=== PATIENT | male | born 1985 | race Caucasian/White ===

== ENCOUNTER 2018-03-15 12:48 | Emergency (ER) | payer OTHER ==
[2018-03-15 13:49] LABS: HBSAB Concentration 7.49 mIU/mL; HIV (1/2) Antibody/Antigen Non-Reactive (NonReactive); HIV 1/2 INDEX 0.12 S/CO (<1.00); Hep B Surf AB Non-Reactive (NonReactive); Hep C IgG Ab Non-Reactive (NonReactive); Hep C Index 0.06 S/CO (0-0.79)
== END 2018-03-15 13:07 | disposition home or self-care (01) ==
LOC: ERS 12:48
DX: Z77.21 Contact with and (suspected) exposure to potentially hazardous body fluids (principal)
CPT/HCPCS: 36415; 86706; 86803; 87389; 99283

== ENCOUNTER 2019-06-20 19:10 | Emergency (ER) | payer OTHER ==
[2019-06-20 23:00] LABS: HBSAB Concentration 7.64 mIU/mL; HIV (1/2) Antibody/Antigen Non-Reactive (NonReactive); HIV 1/2 INDEX 0.08 S/CO (<1.00); Hep B Surf AB Non-Reactive (NonReactive); Hep C IgG Ab Non-Reactive (NonReactive); Hep C Index 0.04 S/CO (0-0.79)
== END 2019-06-20 19:30 | disposition home or self-care (01) ==
LOC: ERS 19:10
DX: S60.411A Abrasion of left index finger, initial encounter (principal); W26.8XXA Contact with other sharp object(s), not elsewhere classified, initial encounter
CPT/HCPCS: 36415; 86706; 86803; 87389; 99283